=== PATIENT | female | born 1965 | race Caucasian/White ===

== ENCOUNTER 2017-03-28 08:41 | Emergency (ER) | payer MEDICAID ==
[~2017-03-28] VITALS: Ht 157.5 cm; Wt 76.0 kg
[2017-03-28 08:46] VITALS: Ht 157.5 cm; Wt 76.0 kg
[2017-03-28] MEDS ORDERED: KETOROLAC 30 MG INJ IM STA (09:50)
--- NOTE | 2017-03-28 10:12 | RADRPT ---
PROCEDURE: Chest x-ray CLINICAL INDICATION: Shortness of breath TECHNIQUE: Chest single view COMPARISON: None FINDINGS: The heart is normal in size. The pulmonary vessels are normal in caliber. There is slightly increas ed bilateral perihilar interstitial markings and pattern likely reflecting bronchiolitis. No conflu ent pneumonia seen. Costophrenic angles are sharp. Bony thorax is unremarkable. IMPRESSION: Increased bilateral perihilar markings and pattern likely reflecting bronchiolitis. RPTAT: HH .Abdoul Moreira MD, MD Date Time Electronically viewed and signed by .Abdoul Moreira MD, on 03/28/2017 10:12 .W/
--- NOTE | 2017-03-28 10:21 | ERD ---
ER Documentation Chief Complaint Date/Time DATE: 03/28/17 TIME: 10:16 Chief Complaint Complains of back pain HPI This is a 51-year-old female who presents emergency department today complaining of some neck pain back pain leg pain left foot pain arm pain and pain with deep inspiration. Denies any cough, cigarette smoke, use of oral contraceptive pills or recent or prolonged travel.States pain has been there probably about "a month". ROS All systems reviewed and are negative except as per history of present illness. Allergies Allergies: Coded Allergies: No Known Allergy (Unverified , 09/08/13) PMhx/Soc History of Surgery: No Anesthesia Reaction: No Hx Respiratory Disorders: No Hx Cardiac Disorders: No Hx Psychiatric Problems: No Hx Miscellaneous Medical Probl: No Hx Alcohol Use: No Hx Substance Use: No Hx Tobacco Use: No Smoking Status: Never smoker Physical Exam Vitals Vital Signs Date Time Temp Pulse Resp B/P Pulse Ox O2 Delivery O2 Flow Rate FiO2 03/28/17 08:46 98.4 79 20 113/78 98 Physical Exam Const: talkative, NAD Head: Atraumatic Eyes: Normal Conjunctiva ENT: Normal External Ears, Nose and Mouth. Neck: Full range of motion..~ No meningismus.Right side of neck with tapezius tenderness Resp: Clear to auscultation bilaterally. No absent breath sounds. No wheezing. Cardio: Regular rate and rhythm, no murmurs Abd: Soft, non tender, non distended. Normal bowel sounds Skin: No petechiae or rashes Back: No midline or flank tenderness Ext: No cyanosis, or edema. Full active range of motion. Neur: Awake and alert Psych: Normal Mood and Affect Results 24 hrs Current Medications Medications (Trade) Dose Ordered Sig/Radha Route PRN Reason Start Time Stop Time Status Last Admin Dose Admin Ketorolac Tromethamine (Toradol) 30 mg ONCE STAT IM 03/28/17 09:50 03/28/17 09:51 DC 03/28/17 10:07 DIAGNOSTIC IMAGING REPORT Patient: JAXSON DUFF : 1965 Age: 51 Sex: F MR #: [id number] DOS: 03/28/17 0000 Ordering MD: JUSTYN DONIS PA-C Location: [facility] Room/Bed: PROCEDURE: Chest x-ray CLINICAL INDICATION: Shortness of breath TECHNIQUE: Chest single view COMPARISON: None FINDINGS: The heart is normal in size. The pulmonary vessels are normal in caliber. There is slightly increased bilateral perihilar interstitial markings and pattern likely reflecting bronchiolitis. No confluent pneumonia seen. Costophrenic angles are sharp. Bony thorax is unremarkable. IMPRESSION: Increased bilateral perihilar markings and pattern likely reflecting bronchiolitis. RPTAT: HH .Abdoul Moreira MD, Date Time Electronically viewed and signed by .Abdoul Moreira MD, on 03/28/2017 10:12 .W/ CC: JUSTYN DONIS PA-C Procedures/MDM This 51-year-old female who presents the emergency department today complaining of multiple areas of pain throughout her body and back pain and pain with deep inspiration.Given patient's complaints I did obtain a chest x-ray. Chest x-ray shows increased bilateral perihilar markings and pattern likely reflecting bronchiolitis. No confluent pneumonia is seen. Low suspicion for PE , abscess, pleural effusion, pneumothorax. Patient is afebrile and otherwise well-appearing. She is complaining of multiple areas of pain in her arms, the right side of her neck and her left footLikely musculoskeletal. Patient symptoms at this time is consistent with pain. Given her normal vital signs and not thought the patient requires further workup or imaging at this time. Low suspicion for sepsis, severe acute bacterial infection. Patient's foot pain likely heel spur versus plantar fasciitis. Patient was instructed in stretching exercises. Patient was given Toradol here in the emergency department. She will be given a prescription for Naprosyn and Tylenol for home. JUSTYN DONIS PA-C Mar 28, 2017 10:21
[2017-03-28] MEDS ORDERED: ACET500C5 PO (10:25)
[2017-03-28] MEDS ORDERED: NAPR-260 PO (10:25)
[2017-03-28 10:39] VITALS: BP 124/75; PULSE 64; RESP 18
== END 2017-03-28 10:39 | disposition home or self-care (01) ==
LOC: FTE 08:41
DX: M54.9 Dorsalgia, unspecified (principal); M54.2 Cervicalgia; M79.672 Pain in left foot; R06.02 Shortness of breath
CPT/HCPCS: 71010; 96374; J1885; Z7502

== ENCOUNTER 2017-07-01 08:35 | Emergency (ER) | payer MEDICAID ==
[~2017-07-01] VITALS: Wt 74.0 kg
[~2017-07-01 08:35] MED LIST: ACET500C5 PO; NAPR-260 PO
[2017-07-01 09:25] LABS: ADD UMIC YES; UR ASCORBIC ACID NEGATIVE (NEGATIVE); UR BACTERIA FEW /HPF (NONE SEEN); UR BILIRUBIN (Dip) NEGATIVE (NEGATIVE); UR BLOOD (Dip) 1+ mg/dL (NEGATIVE); UR CLARITY SLIGHTLY CLOUDY (CLEAR); UR COLOR STRAW (YELLOW); UR GLUCOSE (Dip) NEGATIVE (NEGATIVE); UR KETONES (Dip) NEGATIVE (NEGATIVE); UR LEUKOCYTE ESTERASE (Dip) NEGATIVE Leu/ul (NEGATIVE); UR NITRITE (Dip) NEGATIVE (NEGATIVE); UR RBC 1 /HPF (0-5); UR SPECIFIC GRAVITY (Dip) 1.004 (1.003-1.030); UR SQUAMOUS EPITHELIAL CELL FEW /HPF (FEW); UR TOTAL PROTEIN (Dip) NEGATIVE (NEGATIVE); UR UROBILINOGEN (Dip) NEGATIVE (NEGATIVE)
--- NOTE | 2017-07-01 09:33 | ERD ---
ER Documentation Chief Complaint Chief Complaint PAINFUL URINATION, NO VAG BLEEDING HPI This is a 51-year-old female who presents the emergency department today complaining of burning and pain with urination for the past 2 days. States that she thinks she has some blood in her urine. Denies any fevers or chills, back pain. ROS All systems reviewed and are negative except as per history of present illness. Medications Home Meds Active Scripts Phenazopyridine Hcl* (Pyridium*) 200 Mg Tab, 200 MG PO TID Y for URINARY PAIN, # 6 TAB Prov:JUSTYN DONISC 07/01/17 Ibuprofen* (Motrin*) 600 Mg Tab, 600 MG PO Q6, #30 TAB Prov:JUSTYN DONISC 07/01/17 Acetaminophen* (Tylophen*) 500 Mg Capsule, 1 CAP PO Q6H Y for PAIN AND OR ELEVATED TEMP, #30 CAP Prov:JUSTYN DONISC 03/28/17 Naproxen* (Naprosyn*) 500 Mg Tablet, 500 MG PO BID Y for PAIN AND/OR INFLAMMATION, #30 TAB Prov:JUSTYN DONISC 03/28/17 Allergies Allergies: Coded Allergies: No Known Allergy (Unverified , 09/08/13) PMhx/Soc History of Surgery: No Anesthesia Reaction: No Hx Respiratory Disorders: No Hx Cardiac Disorders: No Hx Psychiatric Problems: No Hx Miscellaneous Medical Probl: No Hx Alcohol Use: No Hx Substance Use: No Hx Tobacco Use: No Physical Exam Vitals Vital Signs Date Time Temp Pulse Resp B/P Pulse Ox O2 Delivery O2 Flow Rate FiO2 07/01/17 08:39 97.3 83 18 125/71 98 Physical Exam Const: obese, NAD Head: Atraumatic Eyes: Normal Conjunctiva ENT: Normal External Ears, Nose and Mouth. Neck: Full range of motion..~ No meningismus. Resp: Clear to auscultation bilaterally Cardio: Regular rate and rhythm, no murmurs Abd: Soft, mild suprapubic tenderness non distended. Normal bowel sounds : No evidence of yeast, rashes or lesions Skin: No petechiae or rashes Back: No midline or flank tenderness Ext: No cyanosis, or edema Neur: Awake and alert Psych: Normal Mood and Affect Results 24 hrs Laboratory Tests Test 07/01/17 08:57 Urine Color STRAW Urine Clarity SLIGHTLY CLOUDY Urine pH 7.0 Urine Specific [place] 1.004 Urine Ketones NEGATIVEmg/dL Urine Nitrite NEGATIVEmg/dL Urine Bilirubin NEGATIVEmg/dL Urine Urobilinogen NEGATIVEmg/dL Urine Leukocyte Esterase NEGATIVELeu/ul Urine Microscopic RBC 1/HPF Urine Microscopic WBC 5/HPF Urine Squamous Epithelial Cells FEW/HPF Urine Bacteria FEW/HPF Urine Hemoglobin 1+mg/dL Urine Glucose NEGATIVEmg/dL Urine Total Protein NEGATIVEmg/dl Procedures/MDM This is a 51-year-old female who presents the emergency department today complaining of burning and pain with urination for the past 2 days. Patient has no other complaints and she is afebrile and otherwise well-appearing. I did obtain a UA. UA negative for infection. There is one microscopic red blood cell and 5 microscopic white blood cells. Urine sent for culture I did do an external vaginal exam that does not show any evidence of yeast, vesicles or lesions. Patient symptoms at this time is consistent with dysuria. Urine was sent for culture. Patient was given a prescription for Motrin and Pyridium. She was instructed to follow-up with her primary care doctor or OB/ [facility]. At this time the patient is stable for discharge and outpatient management. Patient should follow up with their PCP in the next 1-2 days. They may return to the emergency department sooner for any persistent or worsening of symptoms. Patient understood and agreed with the plan. Departure Diagnosis: Primary Impression: Dysuria Condition: Fair JUSTYN DONIS PA-C Jul 01, 2017 09:33
[2017-07-01] MEDS ORDERED: IBUP-1542 PO (09:38)
[2017-07-01] MEDS ORDERED: PHEN-538 PO (09:38)
== END 2017-07-01 09:47 | disposition home or self-care (01) ==
LOC: FTE 08:35
DX: R30.0 Dysuria (principal)
CPT/HCPCS: 81001; 87086; Z7502; 99283